=== PATIENT | female | born 1990 | race Caucasian/White ===

== ENCOUNTER 2016-11-27 08:08 | Emergency (ER) | payer OTHER ==
[2016-11-27] MEDS ORDERED: SODIUM CHLORIDE 0.9% 1,000 ML IV ONE (08:46)
[2016-11-27] MEDS: SODIUM CHLORIDE 0.9% 1,000 ML IV SCH ×2 (09:06→10:28)
[2016-11-27 09:15] LABS: Basophils % (A) 0 %; CH 28.6; Eosinophils % (A) 0 %; HCT 39.8 % (34.0-46.0); HDW 2.47; HGB 13.6 gm/dL (11.4-16.0); Luc # (Auto) 0.18; Luc % (Auto) 2; Lymphocytes # (A) 1.5 k/uL (1.0-4.8); Lymphocytes % (A) 19 %; MCH 29.7 pg (25.0-35.0); MCHC 34.1 g/dL (31.0-37.0); Mean Platelet Volume 6.4; Monocytes # (A) 0.3 k/uL (0-1.0); Monocytes % (A) 4 %; Neutrophils # (A) 5.7 k/uL (1.3-7.7); Neutrophils % (A) 74 %; RBC 4.58 m/uL (3.80-5.40); RDW 13.5 % (11.5-15.5); WBC 7.7 k/uL (3.8-10.6)
[2016-11-27 09:18] LABS: Appearance,Urine Cloudy (Clear); Bacteria,Urine Rare /hpf; Bilirubin,Urine Negative (Negative); Glucose,Urine (UA) Negative (Negative); Ketones,Urine Negative (Negative); Leukocyte Esterase,Urine Small (Negative); Nitrite,Urine Negative (Negative); PH, Urine 5.5 (5.0-8.0); Particle Count 6772; Protein,Urine 1+ (Negative); RBC,Urine >182 /hpf (0-5); Specific Gravity,Urine 1.017 (1.001-1.035); UA Billing (MACRO vs. MICRO) MICRO; Urobilinogen,Urine <2.0 mg/dL (<2.0); WBC,Urine 179 /hpf (0-5)
[2016-11-27 09:23] LABS: Anion Gap 12 mmol/L; Blood Urea Nitrogen 14 mg/dL (7-17); Calcium 9.6 mg/dL (8.4-10.2); Carbon Dioxide 22 mmol/L (22-30); Chloride 109 mmol/L (98-107); Glucose 95 mg/dL (74-99); Non-African American GFR(MDRD) >60 (>60 ml/min/1.73 sqM); Potassium 4.2 mmol/L (3.5-5.1); Sodium 143 mmol/L (137-145)
--- NOTE | 2016-11-27 09:47 | US ---
EXAMINATION TYPE: US transvaginal DATE OF EXAM: 11/27/2016 COMPARISON: NONE CLINICAL HISTORY: Pain. Heavy bleeding with dizziness TECHNIQUE: Transvaginal (TV) Date of LMP: 11/20/2016, G0 EXAM MEASUREMENTS: Uterus: 7.2 x 3.5 x 3.7 cm Endometrial Stripe: 0.8 cm Right Ovary: 3.1 x 2.5 x 2.2 cm Left Ovary: 2.9 x 1.8 x 1.7 cm 1. Uterus: Anteverted wnl 2. Endometrium: limited visualization, wnl as seen 3. Right Ovary: multiple follicles 4. Left Ovary: wnl as visualized, limited visualization due to position and penetration. Unable to perform pulse wave doppler due to ovarian position Spectral, color and waveform doppler imaging shows good arterial and venous flow within the ovaries ; there is no evidence for ovarian torsion. 5. Bilateral Adnexa: wnl 6. Posterior cul-de-sac: no free fluid cervix- nabothian cysts IMPRESSION: NABOTHIAN CYSTS
--- NOTE | 2016-11-27 09:59 | ED ---
General Adult HPI - General Chief complaint: Dizziness Stated complaint: light headed Time Seen by Provider: 11/27/16 08:26 Source: patient, RN notes reviewed, old records reviewed Mode of arrival: ambulatory Limitations: no limitations - History of Present Illness Initial comments: This is a 26-year-old female presenting to emergency department with multiple chief complaints. Patient states that she's been having a heavier menstrual cycle over the past week. She relates that she also is feeling somewhat dizzy and lightheaded yesterday and today. Patient denies any chest pain or shortness of breath. She also relates that she has a cyst on her left medial thigh that she wants to have looked at. Denies any fever or chills. She states that she's been having abnormal menstrual cycles for the past few months. Does not see [employer]. She is never had any children. Patient states that she has no specific abdominal pain either. Patient reports that she was taking iron pills occasionally because of the amount of bleeding that she was having. She denies any falls, head injuries or loss of consciousness. - Related Data Home Medications Medication Instructions Recorded Confirmed Ferrous Sulfate [Feosol] 325 mg PO DAILY 11/27/16 11/27/16 Ibuprofen [Motrin] 200 mg PO Q6HR PRN 11/27/16 11/27/16 Previous Rx's Medication Instructions Recorded Sulfamethox-Tmp 800-160Mg [Bactrim 1 tab PO Q12HR #14 tab 11/27/16 DS 800-160 mg] Allergies Allergy/AdvReac Type Severity Reaction Status Date / Time No Known Allergies Allergy Verified 11/27/16 08:30 Review of Systems ROS Statement: Those systems with pertinent positive or pertinent negative responses have been documented in the HPI. ROS Other: All systems not noted in ROS Statement are negative. Past Medical History Past Medical History: Syncope History of Any Multi-Drug Resistant Organisms: None Reported Past Surgical History: No Surgical Hx Reported Past Psychological History: No Psychological Hx Reported Smoking Status: Never smoker Past Alcohol Use History: Rare Past Drug Use History: None Reported General Exam - General Exam Comments Initial Comments: This is a well-appearing 26-year-old female. Patient does not appear to be in any acute distress. Limitations: no limitations General appearance: alert, in no apparent distress Head exam: Present: atraumatic, normocephalic, normal inspection Eye exam: Present: normal appearance, PERRL, EOMI. Absent: scleral icterus, conjunctival injection, periorbital swelling ENT exam: Present: normal exam, mucous membranes moist Neck exam: Present: normal inspection. Absent: tenderness, meningismus, lymphadenopathy Respiratory exam: Present: normal lung sounds bilaterally. Absent: respiratory distress, wheezes, rales, rhonchi, stridor Cardiovascular Exam: Present: regular rate, normal rhythm, normal heart sounds. Absent: systolic murmur, diastolic murmur, rubs, gallop, clicks GI/Abdominal exam: Present: soft, normal bowel sounds. Absent: distended, tenderness, guarding, rebound, rigid Extremities exam: Present: normal inspection, full ROM, normal capillary refill , other (Vision is evidence of a O left medial thigh cyst. No significant erythema. No palpable abscess that needs to be drained.). Absent: tenderness , pedal edema, joint swelling, calf tenderness Back exam: Present: normal inspection Neurological exam: Present: alert, oriented X3, CN II-XII intact Psychiatric exam: Present: normal affect, normal mood Skin exam: Present: warm, dry, intact, normal color. Absent: rash Course Vital Signs 11/27/16 08:21 Temperature 98.3 F Pulse Rate 85 Respiratory 18 Rate Blood Pressure 134/77 O2 Sat by Pulse 100 Oximetry Medical Decision Making - Medical Decision Making 26 ounce female with multiple chief complaints. He reports he's been having heavy menstrual cycles, feeling somewhat dizzy or lightheaded. She also relates she has a cyst of her left medial thigh. Patient's lab work was reviewed and no significant signs of anemia. Transvaginal ultrasound obtained and showed no bolus and sepsis. No significant uterine changes. EKG was also performed and negative for any acute process. Patient denies any chest pain shortness of breath. Patient was given IV fluids. Discussed that her lightheadedness is likely due to dehydration. Urinalysis does show significant hematuria and white blood cells. Patient can be placed on antibiotics however the cyst as well as urinary tract infection. Discussed that she should've close follow-up with a primary care provider. Will be given referrals her PCP. Discussed remaining hydrated. Discussed that due to her abnormal stress echo she is follow-up with [employer] in chart regulating this with hormone control. Patient likely fits the picture of polycystic ovarian system. Patient agrees to treatment plan will comply. Return parameters were discussed. - Lab Data Result diagrams: 11/27/16 08:52 11/27/16 08:52 Lab Results 11/27/16 11/27/16 11/27/16 Range/Units 08:50 08:52 08:52 WBC 7.7 (3.8-10.6) k/uL RBC 4.58 (3.80-5.40) m/uL Hgb 13.6 (11.4-16.0) gm/dL Hct 39.8 (34.0-46.0) % MCV 87.0 (80.0-100.0) fL MCH 29.7 (25.0-35.0) pg MCHC 34.1 (31.0-37.0) g/dL RDW 13.5 (11.5-15.5) % Plt Count 422 (150-450) k/uL Neutrophils % 74 % Lymphocytes % 19 % Monocytes % 4 % Eosinophils % 0 % Basophils % 0 % Neutrophils # 5.7 (1.3-7.7) k/uL Lymphocytes # 1.5 (1.0-4.8) k/uL Monocytes # 0.3 (0-1.0) k/uL Eosinophils # 0.0 (0-0.7) k/uL Basophils # 0.0 (0-0.2) k/uL Sodium 143 (137-145) mmol/L Potassium 4.2 (3.5-5.1) mmol/L Chloride 109 H (98-107) mmol/L Carbon Dioxide 22 (22-30) mmol/L Anion Gap 12 mmol/L BUN 14 (7-17) mg/dL Creatinine 0.77 (0.52-1.04) mg/dL Est GFR (MDRD) Af Amer >60 (>60 ml/min/1.73 sqM) Est GFR (MDRD) Non-Af >60 (>60 ml/min/1.73 sqM) Glucose 95 (74-99) mg/dL Calcium 9.6 (8.4-10.2) mg/dL Urine Color Light Red Urine Appearance Cloudy H (Clear) Urine pH 5.5 (5.0-8.0) Ur Specific [place] 1.017 (1.001-1.035) Urine Protein 1+ H (Negative) Urine Glucose (UA) Negative (Negative) Urine Ketones Negative (Negative) Urine Blood Large H (Negative) Urine Nitrite Negative (Negative) Urine Bilirubin Negative (Negative) Urine Urobilinogen <2.0 (<2.0) mg/dL Ur Leukocyte Esterase Small H (Negative) Urine RBC >182 H (0-5) /hpf Urine WBC 179 H (0-5) /hpf Urine Bacteria Rare H (None) /hpf 11/27/16 09:55 Page he was reviewed and shows normal sinus rhythm. Ventricular rate of 67 bpm. MT interval 126 no seconds. QRS duration 74 ms. QT QTc is 352/371 ms. No evidence of ST elevation or T-wave inversion. No evidence of atrial or ventricular arrhythmias. - Radiology Data Transvaginal ultrasound obtained. Evidence of notable with hand cyst. No significant uterine antibodies multiple cysts noted in the right left ovary. Disposition Clinical Impression: Abnormal uterine and vaginal bleeding, unspecified, Dehydration, UTI (urinary tract infection), Abscess of left thigh Disposition: HOME SELF-CARE Condition: Good Instructions: Abscess (ED) Additional Instructions: Is to complete the antibiotic prescription. Rest, remain hydrated. Return to emergency department if any alarming signs or symptoms occur. Prescriptions: Sulfamethox-Tmp 800-160Mg [Bactrim DS 800-160 mg] 1 tab PO Q12HR #14 tab Referrals: None,Stated [Primary Care Provider] - 1-2 days Samantha Enrique MD [STAFF PHYSICIAN] - 1-2 days Flora Mcclelland MD [STAFF PHYSICIAN] - 1-2 days Time of Disposition: 09:58
[2016-11-27 10:39] VITALS: BP 132/72; PULSE 83; RESP 17; TEMP 97.7
== END 2016-11-27 10:38 | disposition home or self-care (01) ==
LOC: EC 08:08
DX: N93.9 Abnormal uterine and vaginal bleeding, unspecified (principal); E86.0 Dehydration; N39.0 Urinary tract infection, site not specified; L02.416 Cutaneous abscess of left lower limb; R42 Dizziness and giddiness; Z79.899 Other long term (current) drug therapy
CPT/HCPCS: 36415; 76830; 80048; 81001; 85025; 93005; 93976; 96360; 99285